=== PATIENT | female | born 1975 | race Caucasian/White ===

== ENCOUNTER 2016-05-12 11:22 | Emergency (ER) | payer OTHER ==
[~2016-05-12] VITALS: Ht 162.6 cm; Wt 78.6 kg
[2016-05-12] MEDS ORDERED: PROZAC40 MG PO (11:36)
[2016-05-12] MEDS ORDERED: METHADONE10 MG PO (11:36)
[2016-05-12 12:42] LABS: CHLORIDE 106 mEq/L (99-109); POTASSIUM 3.8 mEq/L (3.7-5.4); SODIUM 137 mEq/L (136-147)
[2016-05-12 12:44] LABS: GLUCOSE 101 mg/dL (70-99)
[2016-05-12 12:45] LABS: ANION GAP 7 MEQ/L (2-14)
[2016-05-12 12:46] LABS: TOTAL BILIRUBIN 0.4 mg/dL (0.0-1.0)
[2016-05-12 12:47] LABS: ALKALINE PHOSPHATASE 75 IU/L (3-129)
[2016-05-12 12:48] LABS: GFR ESTIMATE (CALCULATED) > 59 mL/min/
[2016-05-12 12:49] LABS: UREA NITROGEN (BUN) 7 mg/dL (9-23)
[2016-05-12 12:53] LABS: MCH 20.8 PG (29.0-34.0); MCV 69.4 FL (83-99); MEAN PLAT.VOLUME 9.8 uM^3 (9.5-12.4); PLATELET COUNT 72 K/uL (156-360); RBC DIS.WIDTH-CV 17.5 % (11.8-14.6)
[2016-05-12 12:54] LABS: WHITE BLOOD COUNT 1.7 K/uL (4.1-10.2)
[2016-05-12 14:27] LABS: IRON 27 MCG/DL (35-150)
[2016-05-12 15:23] VITALS: BP 142/88
[2016-05-14] MEDS ORDERED: ASPIRIN325 MG PO (10:09)
[2016-05-14] MEDS ORDERED: FLEXERIL10 MG PO (10:09)
== END 2016-05-12 15:28 | disposition home or self-care (01) ==
LOC: EME 11:22
PROVIDERS: Nurse Practitioner Family
DX: D64.9 Anemia, unspecified (principal); F11.99 Opioid use, unspecified with unspecified opioid-induced disorder; R05 Cough; Z86.19 Personal history of other infectious and parasitic diseases; F17.200 Nicotine dependence, unspecified, uncomplicated
CPT/HCPCS: 80053; 82140; 83540; 85027; 86850; 86900; 86901; 86920; 86999; 99281; 99285

== ENCOUNTER → 2016-05-14 | Outpatient (CLI) | payer OTHER ==
[~2016-05-14] MED LIST: ASPIRIN325 MG PO; FLEXERIL10 MG PO; METHADONE10 MG PO; PROZAC40 MG PO
== END | disposition home or self-care (01) ==
LOC: CDC 16:03
DX: I45.81 Long QT syndrome (principal)
CPT/HCPCS: 93000

== ENCOUNTER 2016-09-20 14:14 | Emergency (ER) | payer OTHER ==
[~2016-09-20] VITALS: Ht 162.6 cm; Wt 76.4 kg
[2016-09-20 16:13] LABS: CHLORIDE 106 mEq/L (99-109); POTASSIUM 3.1 mEq/L (3.7-5.4); SODIUM 137 mEq/L (136-147)
[2016-09-20 16:16] LABS: GLUCOSE 94 mg/dL (70-99); HEMATOCRIT 10.7 % (36.0-46.0); MCH 16.7 PG (29.0-34.0); MCHC 26.2 G/DL (30.0-36.0); MCV 63.7 FL (83-99); RBC DIS.WIDTH-SD 51.6 % (39-53); RED BLOOD COUNT 1.68 M/uL (3.80-5.20)
[2016-09-20 16:17] LABS: ANION GAP 9 MEQ/L (2-14); TOTAL BILIRUBIN 0.7 mg/dL (0.0-1.0); WHITE BLOOD COUNT 1.3 K/uL (4.1-10.2)
[2016-09-20 16:19] LABS: ALKALINE PHOSPHATASE 55 IU/L (3-129); GFR ESTIMATE (CALCULATED) > 59 mL/min/
[2016-09-20 16:20] LABS: UREA NITROGEN (BUN) 8 mg/dL (9-23)
[2016-09-20 16:23] LABS: LIPASE 17 U/L (1.0-51.0)
[2016-09-20 16:28] LABS: QUANTITATIVE HCG < 4.0 MIU/ML
[2016-09-20 16:47] LABS: TROP-I INTERPRETATION NEGATIVE; TROPONIN-I < 0.01 ng/mL (0.0-0.30)
[2016-09-20 17:07] LABS: MEAN PLAT.VOLUME 8.8 uM^3 (9.5-12.4); PLAT.SUFFICIENCY DECREASED; PLATELET COUNT 83 K/uL (156-360)
[2016-09-20] MEDS ORDERED: METHADONE1 MG/1 ML PO (17:25)
[2016-09-20 21:08] VITALS: BP 84/55
[2016-09-20 21:31] VITALS: BP 113/68
[2016-09-20 22:27] VITALS: BP 103/62
[2016-09-21 00:22] LABS: INTER. NORMALIZED RATIO 1.3; PROTHROMBIN TIME 13.7 (9.2-11.2); PTT 27.8 (25-32)
[2016-09-21 00:32] LABS: HEMATOCRIT 16.2 % (36.0-46.0); MCH 19.8 PG (29.0-34.0); MCHC 28.4 G/DL (30.0-36.0); RBC DIS.WIDTH-CV 22.7 % (11.8-14.6); RBC DIS.WIDTH-SD 57.1 % (39-53)
[2016-09-21 00:41] LABS: MEAN PLAT.VOLUME 10.1 uM^3 (9.5-12.4); PLATELET COUNT 78 K/uL (156-360)
[2016-09-21 00:42] LABS: MCV 69.8 FL (83-99); RED BLOOD COUNT 2.32 M/uL (3.80-5.20); WHITE BLOOD COUNT 1.3 K/uL (4.1-10.2)
[2016-09-21 01:00] VITALS: BP 103/75
== END 2016-09-21 01:02 | disposition short-term general hospital (02) ==
LOC: EME 14:14
PROVIDERS: Physician Assistant
PROC: 30233N1 Transfusion of Nonautologous Red Blood Cells into Peripheral Vein, Percutaneous Approach (ICD-10-PCS; principal; 2016-09-20)
DX: D62 Acute posthemorrhagic anemia (principal); K92.2 Gastrointestinal hemorrhage, unspecified; K74.60 Unspecified cirrhosis of liver; B19.20 Unspecified viral hepatitis C without hepatic coma; R06.02 Shortness of breath; Z79.82 Long term (current) use of aspirin; Z79.891 Long term (current) use of opiate analgesic; F17.200 Nicotine dependence, unspecified, uncomplicated; Z88.0 Allergy status to penicillin
CPT/HCPCS: 80053; 81003; 83690; 84484; 84702; 85014; 85018; 85025; 85027; 85610; 85730; 86870; 86900; 86901; 86905; 86920; 93005; 99281; 99285; C9113; J2354; J7050; P9016

== ENCOUNTER 2016-11-30 21:05 | Inpatient (IN) | payer OTHER ==
[~2016-11-30] VITALS: Ht 162.6 cm; Wt 73.3 kg
[~2016-11-30 21:05] MED LIST changes: +METHADONE1 MG/1 ML PO
[2016-11-30 22:12] LABS: CHLORIDE 109 mEq/L (99-109); POTASSIUM 3.3 mEq/L (3.7-5.4); SODIUM 139 mEq/L (136-147)
[2016-11-30 22:14] LABS: GLUCOSE 105 mg/dL (70-99); INTER. NORMALIZED RATIO 1.1; PROTHROMBIN TIME 12.4 SEC (10.2-12.9)
[2016-11-30 22:15] LABS: ANION GAP 8 MEQ/L (2-14)
[2016-11-30 22:16] LABS: TOTAL BILIRUBIN 0.3 mg/dL (0.0-1.0)
[2016-11-30 22:17] LABS: ALKALINE PHOSPHATASE 50 IU/L (3-129)
[2016-11-30 22:18] LABS: GFR ESTIMATE (CALCULATED) > 59 mL/min/
[2016-11-30 22:19] LABS: UREA NITROGEN (BUN) 22 mg/dL (9-23)
[2016-11-30 22:28] LABS: EOSINOPHIL (%) 2.2 % (0-5); EOSINOPHIL COUNT 0.1 K/uL (0-0.3); HEMATOCRIT 16.7 % (36.0-46.0); IMMATURE GRANULOCYTE (%) 0.4 % (0.0-0.7); INSTRUMENT ABS NEUTROPHIL CT 1.3 K/uL; LYMPHOCYTE COUNT 1.1 K/uL (1.0-2.8); MCH 25.1 PG (29.0-34.0); MCHC 31.7 G/DL (30.0-36.0); MCV 79.1 FL (83-99); MEAN PLAT.VOLUME 9.7 uM^3 (9.5-12.4); MONOCYTE (%) 12.3 % (3-12); MONOCYTE COUNT 0.3 K/uL (0-0.8); NEUTROPHIL COUNT 1.3 K/uL (1.8-6.4); PLATELET COUNT 60 K/uL (156-360); RBC DIS.WIDTH-CV 16.8 % (11.8-14.6); RBC DIS.WIDTH-SD 46.8 % (39-53); RED BLOOD COUNT 2.11 M/uL (3.80-5.20); WHITE BLOOD COUNT 2.8 K/uL (4.1-10.2)
[2016-11-30] MEDS ORDERED: TYLENOL EXTRA500 MG PO (23:37)
[2016-12-01] VITALS (25 sets, daily range): BP systolic 96–125; BP diastolic 56–75
[2016-12-01 06:50] LABS: ALKALINE PHOSPHATASE 41 IU/L (3-129); ANION GAP 6 MEQ/L (2-14); CHLORIDE 110 MEQ/L (99-109); GFR ESTIMATE (CALCULATED) > 59 mL/min/; POTASSIUM 3.3 MEQ/L (3.7-5.4); SAMPLE HEMOLYSIS CHECK 0; SAMPLE ICTERIC CHECK 0; SAMPLE LIPEMIA CHECK 0; SODIUM 138 MEQ/L (136-147); TOTAL BILIRUBIN 0.4 MG/DL (0.0-1.0); UREA NITROGEN (BUN) 18 mg/dL (9-23)
[2016-12-01 06:53] LABS: GLUCOSE 170 mg/dL (70-99)
[2016-12-01 06:57] LABS: TROP-I INTERPRETATION NEGATIVE; TROPONIN-I < 0.01 ng/mL (0.0-0.30)
[2016-12-01 13:27] LABS: TROP-I INTERPRETATION NEGATIVE; TROPONIN-I < 0.01 ng/mL (0.0-0.30)
[2016-12-01 15:14] LABS: HEMATOCRIT 24.4 % (36.0-46.0); IMM.PLATELET FRACTION 1.7 (1-7); MCH 28.6 PG (29.0-34.0); PLATELET COUNT 46 K/uL (156-360); RBC DIS.WIDTH-CV 16.2 % (11.8-14.6); RBC DIS.WIDTH-SD 48.9 % (39-53)
[2016-12-01 15:42] LABS: MCV 84.1 FL (83-99); PLAT.SUFFICIENCY VERY DECREASED; WHITE BLOOD COUNT 1.6 K/uL (4.1-10.2)
[2016-12-02 01:21] LABS: HEMATOCRIT 25.4 % (36.0-46.0)
[2016-12-02 04:40] VITALS: BP 108/62
[2016-12-02 04:57] LABS: INTER. NORMALIZED RATIO 1.1; PROTHROMBIN TIME 12.2 SEC (10.2-12.9)
[2016-12-02 05:06] LABS: CHLORIDE 108 mEq/L (99-109); POTASSIUM 3.5 mEq/L (3.7-5.4); SODIUM 142 mEq/L (136-147)
[2016-12-02 05:09] LABS: ANION GAP 9 MEQ/L (2-14); GLUCOSE 118 mg/dL (70-99)
[2016-12-02 05:12] LABS: ALKALINE PHOSPHATASE 51 IU/L (3-129); GFR ESTIMATE (CALCULATED) > 59 mL/min/
[2016-12-02 05:13] LABS: UREA NITROGEN (BUN) 13 mg/dL (9-23)
[2016-12-02 05:15] LABS: TOTAL BILIRUBIN 0.9 mg/dL (0.0-1.0)
[2016-12-02 05:30] LABS: HEMATOCRIT 24.6 % (36.0-46.0); MCH 27.6 PG (29.0-34.0); MCHC 33.3 G/DL (30.0-36.0); MCV 82.8 FL (83-99); MEAN PLAT.VOLUME 10.2 uM^3 (9.5-12.4); PLATELET COUNT 53 K/uL (156-360); RBC DIS.WIDTH-CV 15.7 % (11.8-14.6); RBC DIS.WIDTH-SD 46.1 % (39-53); RED BLOOD COUNT 2.97 M/uL (3.80-5.20)
[2016-12-02 05:31] LABS: WHITE BLOOD COUNT 1.6 K/uL (4.1-10.2)
[2016-12-02 07:40] VITALS: BP 90/55
[2016-12-02 10:29] LABS: AHBS INDEX 52.25; HBSG INDEX 0.16
[2016-12-02 10:32] LABS: HEPATITIS B SURFACE ANTIBODY REACTIVE
[2016-12-02 11:45] VITALS: BP 124/62
[2016-12-02 15:37] LABS: HEMATOCRIT 25.2 % (36.0-46.0)
[2016-12-02 16:50] VITALS: BP 110/67
[2016-12-02 19:00] VITALS: BP 113/67
[2016-12-02 23:46] VITALS: BP 102/58
[2016-12-03 00:38] LABS: HEMATOCRIT 25.6 % (36.0-46.0); MCV 83.7 FL (83-99)
[2016-12-03 04:03] VITALS: BP 100/57
[2016-12-03 07:46] LABS: HEMATOCRIT 25.3 % (36.0-46.0); MCH 27.7 PG (29.0-34.0); MCHC 32.4 G/DL (30.0-36.0); MCV 85.5 FL (83-99); MEAN PLAT.VOLUME 10.1 uM^3 (9.5-12.4); PLATELET COUNT 52 K/uL (156-360); RBC DIS.WIDTH-CV 16.3 % (11.8-14.6); RBC DIS.WIDTH-SD 49.8 % (39-53); RED BLOOD COUNT 2.96 M/uL (3.80-5.20); WHITE BLOOD COUNT 1.2 K/uL (4.1-10.2)
[2016-12-03 07:51] VITALS: BP 116/69
[2016-12-03 08:11] LABS: ANION GAP 5 MEQ/L (2-14); CHLORIDE 106 MEQ/L (99-109); GFR ESTIMATE (CALCULATED) > 59 mL/min/; GLUCOSE 114 mg/dL (70-99); POTASSIUM 3.5 MEQ/L (3.7-5.4); SAMPLE HEMOLYSIS CHECK 0; SAMPLE ICTERIC CHECK 0; SAMPLE LIPEMIA CHECK 0; SODIUM 140 MEQ/L (136-147); UREA NITROGEN (BUN) 12 mg/dL (9-23)
[2016-12-03 12:15] VITALS: BP 102/58
[2016-12-03 15:19] LABS: HEMATOCRIT 25.1 % (36.0-46.0); MCV 85.4 FL (83-99)
[2016-12-03 16:36] VITALS: BP 117/64
[2016-12-03 19:21] VITALS: BP 114/71
[2016-12-03 22:57] VITALS: BP 110/61
[2016-12-04 01:11] LABS: HEMATOCRIT 25.2 % (36.0-46.0); MCV 85.4 FL (83-99)
[2016-12-04 05:26] VITALS: BP 119/67
[2016-12-04 06:50] LABS: HEMATOCRIT 25.5 % (36.0-46.0); IMM.PLATELET FRACTION 3.1 (1-7); MCH 27.3 PG (29.0-34.0); MCHC 31.8 G/DL (30.0-36.0); MCV 85.9 FL (83-99); MEAN PLAT.VOLUME 9.2 uM^3 (9.5-12.4); PLATELET COUNT 43 K/uL (156-360); RBC DIS.WIDTH-CV 16.5 % (11.8-14.6); RBC DIS.WIDTH-SD 49.7 % (39-53); RED BLOOD COUNT 2.97 M/uL (3.80-5.20)
[2016-12-04 07:02] LABS: WHITE BLOOD COUNT 1.1 K/uL (4.1-10.2)
[2016-12-04 07:04] LABS: PLAT.SUFFICIENCY DECREASED
[2016-12-04 07:05] VITALS: BP 117/66
[2016-12-04 11:05] LABS: INTER. NORMALIZED RATIO 1.2; PROTHROMBIN TIME 13.1 SEC (10.2-12.9)
[2016-12-04 11:13] LABS: MCH 27.7 PG (29.0-34.0); MCHC 31.9 G/DL (30.0-36.0); MCV 86.7 FL (83-99); RBC DIS.WIDTH-CV 16.7 % (11.8-14.6); RBC DIS.WIDTH-SD 51.1 % (39-53)
[2016-12-04 11:15] VITALS: BP 107/64
[2016-12-04 11:38] LABS: WHITE BLOOD COUNT 1.2 K/uL (4.1-10.2)
[2016-12-04 11:40] LABS: ANION GAP 8 MEQ/L (2-14); CHLORIDE 108 MEQ/L (99-109); GFR ESTIMATE (CALCULATED) > 59 mL/min/; GLUCOSE 108 mg/dL (70-99); POTASSIUM 3.8 MEQ/L (3.7-5.4); SAMPLE HEMOLYSIS CHECK 0; SAMPLE ICTERIC CHECK 0; SAMPLE LIPEMIA CHECK 0; SODIUM 141 MEQ/L (136-147); UREA NITROGEN (BUN) 13 mg/dL (9-23)
[2016-12-04 12:45] LABS: IMM.PLATELET FRACTION 3.5 (1-7); MEAN PLAT.VOLUME 10.8 uM^3 (9.5-12.4); PLAT.SUFFICIENCY DECREASED; PLATELET COUNT 55 K/uL (156-360)
[2016-12-04 15:49] VITALS: BP 114/68
[2016-12-04 15:51] LABS: HEMATOCRIT 25.2 % (36.0-46.0)
[2016-12-04 19:32] VITALS: BP 113/70
[2016-12-05] VITALS (7 sets, daily range): BP systolic 105–121; BP diastolic 60–74
[2016-12-05 00:21] LABS: HEMATOCRIT 25.4 % (36.0-46.0); MCV 85.8 FL (83-99)
[2016-12-05 06:32] LABS: INTER. NORMALIZED RATIO 1.2; PROTHROMBIN TIME 12.8 SEC (10.2-12.9)
[2016-12-05 06:35] LABS: PTT 27.2 SEC (25-37)
[2016-12-05 08:12] LABS: FERRITIN 11 NG/ML (10-291)
[2016-12-05 09:02] LABS: ANION GAP 6 MEQ/L (2-14); CHLORIDE 106 MEQ/L (99-109); GFR ESTIMATE (CALCULATED) > 59 mL/min/; GLUCOSE 88 mg/dL (70-99); SAMPLE HEMOLYSIS CHECK 0; SAMPLE ICTERIC CHECK 0; SAMPLE LIPEMIA CHECK 0; SODIUM 140 MEQ/L (136-147); UREA NITROGEN (BUN) 11 mg/dL (9-23)
[2016-12-05 09:35] LABS: HEMATOCRIT 25.1 % (36.0-46.0); IMM.PLATELET FRACTION 3.3 (1-7); MCH 28.5 PG (29.0-34.0); MCHC 32.7 G/DL (30.0-36.0); MCV 87.2 FL (83-99); MEAN PLAT.VOLUME 10.7 uM^3 (9.5-12.4); PLATELET COUNT 53 K/uL (156-360); RBC DIS.WIDTH-CV 16.7 % (11.8-14.6); RBC DIS.WIDTH-SD 52.3 % (39-53); RED BLOOD COUNT 2.88 M/uL (3.80-5.20)
[2016-12-05 16:20] LABS: HEMATOCRIT 25.4 % (36.0-46.0); MCV 87.3 FL (83-99)
[2016-12-06 00:57] LABS: HEMATOCRIT 25.7 % (36.0-46.0)
[2016-12-06 03:42] VITALS: BP 91/49
[2016-12-06 07:45] VITALS: BP 127/75
[2016-12-06 09:34] LABS: HEMATOCRIT 29.1 % (36.0-46.0); MCH 28.5 PG (29.0-34.0); MCHC 32.6 G/DL (30.0-36.0); MCV 87.4 FL (83-99); RBC DIS.WIDTH-CV 16.5 % (11.8-14.6); RBC DIS.WIDTH-SD 52.2 % (39-53); RED BLOOD COUNT 3.33 M/uL (3.80-5.20); WHITE BLOOD COUNT 3.2 K/uL (4.1-10.2)
[2016-12-06 10:08] LABS: IMM.PLATELET FRACTION 2.7 (1-7); MEAN PLAT.VOLUME 9.9 uM^3 (9.5-12.4); PLAT.SUFFICIENCY DECREASED; PLATELET COUNT 43 K/uL (156-360)
[2016-12-06 11:58] VITALS: BP 125/78
[2016-12-06] MEDS ORDERED: NICOTINE PATCH1 EAC2 TD (12:23)
[2016-12-06] MEDS ORDERED: NICORELIEF2 MG BC (12:23)
[2016-12-06] MEDS ORDERED: PANTOPRAZOLE SO40 MG PO (12:24)
== END 2016-12-06 13:57 | disposition home or self-care (01) | DRG 441 ==
LOC: EME 21:05 → 4EAST 12-01 00:24 → EDOF 12-01 00:24 → ENRESERV 12-01 00:26 → 4EAST 12-01 01:20 → ENRESERV 12-03 12:04 → CANRESERV 12-03 12:04 → ENPENDDIS 12-06 → 4EAST 12-06 13:57
PROVIDERS: Emergency Medicine; Hospitalist; Internal Medicine Gastroenterology; Internal Medicine Hematology & Oncology; Physician Assistant
PROC: 0DJ08ZZ Inspection of Upper Intestinal Tract, Via Natural or Artificial Opening Endoscopic (ICD-10-PCS; principal; 2016-12-01)
PROC: 30233R1 Transfusion of Nonautologous Platelets into Peripheral Vein, Percutaneous Approach (ICD-10-PCS; 2016-12-01)
PROC: 30233N1 Transfusion of Nonautologous Red Blood Cells into Peripheral Vein, Percutaneous Approach (ICD-10-PCS; 2016-12-01)
DX: K76.6 Portal hypertension (principal); K31.89 Other diseases of stomach and duodenum; B19.20 Unspecified viral hepatitis C without hepatic coma; K74.60 Unspecified cirrhosis of liver; K72.90 Hepatic failure, unspecified without coma; D61.818 Other pancytopenia; I85.00 Esophageal varices without bleeding; K25.4 Chronic or unspecified gastric ulcer with hemorrhage; E87.6 Hypokalemia; D62 Acute posthemorrhagic anemia; F11.20 Opioid dependence, uncomplicated; D73.1 Hypersplenism; K59.00 Constipation, unspecified; F14.10 Cocaine abuse, uncomplicated; F32.9 Major depressive disorder, single episode, unspecified; F41.9 Anxiety disorder, unspecified; Z62.810 Personal history of physical and sexual abuse in childhood; F17.210 Nicotine dependence, cigarettes, uncomplicated; Z79.82 Long term (current) use of aspirin
CPT/HCPCS: 74177; 80048; 80048 91; 80053; 80069; 82105 90; 82140; 82330; 82607; 82728; 82746; 84484; 85014; 85018; 85025; 85027; 85610; 85730; 86706; 86870; 86900; 86901; 86905; 86920; 87340; 87522 90; 99281; 99284; C9113; J0696; J1447; J1940; J2250; J2354; J2405; J3010; J3480; J7030; J7042; J7050; P9016; P9035

== ENCOUNTER 2017-01-18 18:08 | Inpatient (IN) | payer OTHER ==
[~2017-01-18] VITALS: Ht 162.6 cm; Wt 80.2 kg
[~2017-01-18 18:08] MED LIST changes: +NICORELIEF2 MG BC; +NICOTINE PATCH1 EAC2 TD; +PANTOPRAZOLE SO40 MG PO; +TYLENOL EXTRA500 MG PO
[2017-01-18 20:03] LABS: ADD MIUA? YES; BILIRUBIN NEGATIVE; BLOOD NEGATIVE; COLOR YELLOW ((YELLOW)); GLUCOSE (STRIP) NEGATIVE; KETONES NEGATIVE; LEUKOCYTES TRACE; NITRITE NEGATIVE; PROTEIN (STRIP) NEGATIVE; SPECIFIC GRAVITY 1.009 (1.000-1.030); UROBILINOGEN 0.2 MG/DL (0.2-1.0)
[2017-01-18 20:08] LABS: HEMATOCRIT 13.6 % (36.0-46.0); MCH 21.9 PG (29.0-34.0); MCHC 28.7 G/DL (30.0-36.0); MCV 76.4 FL (83-99); MEAN PLAT.VOLUME 10.2 uM^3 (9.5-12.4); PLATELET COUNT 74 K/uL (156-360); RBC DIS.WIDTH-CV 18.9 % (11.8-14.6); RBC DIS.WIDTH-SD 52.5 % (39-53); RED BLOOD COUNT 1.78 M/uL (3.80-5.20); WHITE BLOOD COUNT 1.3 K/uL (4.1-10.2)
[2017-01-18 20:15] LABS: CHLORIDE 110 mEq/L (99-109); POTASSIUM 3.5 mEq/L (3.7-5.4); SODIUM 139 mEq/L (136-147)
[2017-01-18 20:17] LABS: GLUCOSE 98 mg/dL (70-99)
[2017-01-18 20:18] LABS: ANION GAP 6 MEQ/L (2-14)
[2017-01-18 20:20] LABS: GFR ESTIMATE (CALCULATED) > 59 mL/min/
[2017-01-18 20:21] LABS: UREA NITROGEN (BUN) 5 mg/dL (9-23)
[2017-01-18 20:22] LABS: BACTERIA RARE /HPF; EPITHELIAL CELLS RARE /HPF; HYALINE CASTS 0-5 /LPF; MUCUS NONE SEEN /LPF; RED BLOOD CELLS 0-5 /HPF (0-5); UNCLASSIFIED CRYSTALS 1+ /HPF; WHITE BLOOD CELLS 0-5 /HPF (0-5)
[2017-01-18 22:51] LABS: EOSINOPHIL (%) 3.8 % (0-5); HEMATOCRIT 12.4 % (36.0-46.0); IMMATURE GRANULOCYTE (%) 0.9 % (0.0-0.7); INSTRUMENT ABS NEUTROPHIL CT 0.5 K/uL; LYMPHOCYTE COUNT 0.4 K/uL (1.0-2.8); MCH 22.2 PG (29.0-34.0); MCV 76.5 FL (83-99); MONOCYTE (%) 14.2 % (3-12); MONOCYTE COUNT 0.2 K/uL (0-0.8); NEUTROPHIL (%) 47.1 % (45-76); NEUTROPHIL COUNT 0.5 K/uL (1.8-6.4); RBC DIS.WIDTH-CV 18.6 % (11.8-14.6); RBC DIS.WIDTH-SD 51.8 % (39-53); RED BLOOD COUNT 1.62 M/uL (3.80-5.20)
[2017-01-18 22:53] LABS: WHITE BLOOD COUNT 1.1 K/uL (4.1-10.2)
[2017-01-18 23:54] LABS: MEAN PLAT.VOLUME 9.6 uM^3 (9.5-12.4); PLAT.SUFFICIENCY DECREASED; PLATELET COUNT 60 K/uL (156-360)
[2017-01-19] VITALS (31 sets, daily range): BP systolic 99–147; BP diastolic 61–96
[2017-01-19 05:22] LABS: INTER. NORMALIZED RATIO 1.2; PROTHROMBIN TIME 13.2 SEC (10.2-12.9)
[2017-01-19 05:24] LABS: PTT 28.6 SEC (25-37)
[2017-01-19 06:48] LABS: METH RESISTANT S AUREUS PCR NEGATIVE (NEGATIVE); PROBE CHECK PASS; SPECIMEN PROCESSING CONTROL PASS
[2017-01-19 08:26] LABS: MCH 24.4 PG (29.0-34.0); MCHC 30.6 G/DL (30.0-36.0); MEAN PLAT.VOLUME 9.6 uM^3 (9.5-12.4); PLATELET COUNT 51 K/uL (156-360); RBC DIS.WIDTH-CV 18.6 % (11.8-14.6); RBC DIS.WIDTH-SD 54.2 % (39-53)
[2017-01-19 08:31] LABS: RED BLOOD COUNT 2.25 M/uL (3.80-5.20); WHITE BLOOD COUNT 0.8 K/uL (4.1-10.2)
[2017-01-19 09:16] LABS: ABS NEUTROPHIL COUNT 0.4; ANISOCYTOSIS 1+; BASOPHILS 2.1 %; EOSINOPHIL ABS CT 0; EOSINOPHILS 1.6 % (0-5.0); HYPOCHROMASIA 1+; INSTRUMENT ABS NEUTROPHIL CT 0.4 K/uL; LYMPHOCYTES 39.5 % (15.0-45.0); MICROCYTOSIS 1+; NUCLEATED RBC'S 2.6; OVALOCYTES 1+; PLAT.SUFFICIENCY DECREASED; SEG.NEUTROPHILS 53.7 % (46.0-76.0); SMUDGE CELLS 5.8; TEAR DROP CELLS 1+
[2017-01-19 09:23] LABS: ALKALINE PHOSPHATASE 63 IU/L (3-129); ANION GAP 4 MEQ/L (2-14); CHLORIDE 111 MEQ/L (99-109); GFR ESTIMATE (CALCULATED) > 59 mL/min/; GLUCOSE 122 mg/dL (70-99); POTASSIUM 3.9 MEQ/L (3.7-5.4); SAMPLE HEMOLYSIS CHECK 0; SAMPLE ICTERIC CHECK 0; SAMPLE LIPEMIA CHECK 0; SODIUM 139 MEQ/L (136-147); TOTAL BILIRUBIN 0.9 MG/DL (0.0-1.0); UREA NITROGEN (BUN) 5 mg/dL (9-23)
[2017-01-19] MEDS ORDERED: NEURONTIN400 MG PO (11:27)
[2017-01-19] MEDS ORDERED: FEOSOL325 MG PO (11:28)
[2017-01-19] MEDS ORDERED: ENULOSE10 GM/15 M PO (11:29)
[2017-01-19] MEDS ORDERED: INDERAL10 MG PO (11:29)
[2017-01-19 14:53] LABS: HEMATOCRIT 23.7 % (36.0-46.0); MCH 24.7 PG (29.0-34.0); MCHC 31.2 G/DL (30.0-36.0); MCV 79.3 FL (83-99); PLATELET COUNT 52 K/uL (156-360); RBC DIS.WIDTH-SD 48.6 % (39-53)
[2017-01-19 14:55] LABS: RED BLOOD COUNT 2.99 M/uL (3.80-5.20)
[2017-01-19 15:39] LABS: ABS NEUTROPHIL COUNT 0.5; ATYPICAL LYMPHOCYTE 1.8 %; BASOPHILS 1.8 %; EOSINOPHIL ABS CT 0; EOSINOPHILS 0.9 % (0-5.0); HYPOCHROMASIA 2+; INSTRUMENT ABS NEUTROPHIL CT 0.5 K/uL; LYMPHOCYTES 40.7 % (15.0-45.0); NUCLEATED RBC'S 2.7; OVALOCYTES 1+; PLAT.SUFFICIENCY VERY DECREASED; SEG.NEUTROPHILS 49.5 % (46.0-76.0); TARGET CELLS 1+
[2017-01-20] VITALS (9 sets, daily range): BP systolic 110–136; BP diastolic 71–95
[2017-01-20 05:03] LABS: CHLORIDE 112 mEq/L (99-109); HEMATOCRIT 25.2 % (36.0-46.0); MCH 24.7 PG (29.0-34.0); MCV 79.7 FL (83-99); POTASSIUM 4.1 mEq/L (3.7-5.4); RBC DIS.WIDTH-CV 17.3 % (11.8-14.6); RBC DIS.WIDTH-SD 50.8 % (39-53); RED BLOOD COUNT 3.16 M/uL (3.80-5.20); SODIUM 139 mEq/L (136-147); WHITE BLOOD COUNT 1.7 K/uL (4.1-10.2)
[2017-01-20 05:04] LABS: GLUCOSE 98 mg/dL (70-99)
[2017-01-20 05:06] LABS: ANION GAP 6 MEQ/L (2-14)
[2017-01-20 05:08] LABS: GFR ESTIMATE (CALCULATED) > 59 mL/min/
[2017-01-20 05:09] LABS: UREA NITROGEN (BUN) 6 mg/dL (9-23)
[2017-01-20 05:43] LABS: IMM.PLATELET FRACTION 1.5 (1-7); MEAN PLAT.VOLUME 9.3 uM^3 (9.5-12.4); PLAT.SUFFICIENCY DECREASED; PLATELET COUNT 48 K/uL (156-360)
[2017-01-20] MEDS ORDERED: FUROSEMIDE20 MG PO (15:30)
[2017-01-20] MEDS ORDERED: ALDACTONE100 MG PO (15:31)
[2017-01-21] VITALS: BP 123/80
[2017-01-21 02:00] VITALS: BP 126/73
[2017-01-21 04:00] VITALS: BP 119/71
[2017-01-21 04:53] LABS: HEMATOCRIT 24.1 % (36.0-46.0); MCH 24.8 PG (29.0-34.0); MCHC 30.7 G/DL (30.0-36.0); MCV 80.9 FL (83-99); RBC DIS.WIDTH-CV 18.4 % (11.8-14.6); RBC DIS.WIDTH-SD 54.8 % (39-53); RED BLOOD COUNT 2.98 M/uL (3.80-5.20)
[2017-01-21 04:55] LABS: WHITE BLOOD COUNT 1.7 K/uL (4.1-10.2)
[2017-01-21 05:10] LABS: CHLORIDE 111 mEq/L (99-109); POTASSIUM 4.5 mEq/L (3.7-5.4); SODIUM 141 mEq/L (136-147)
[2017-01-21 05:11] LABS: GLUCOSE 113 mg/dL (70-99)
[2017-01-21 05:13] LABS: ANION GAP 4 MEQ/L (2-14)
[2017-01-21 05:15] LABS: GFR ESTIMATE (CALCULATED) > 59 mL/min/
[2017-01-21 05:16] LABS: UREA NITROGEN (BUN) 6 mg/dL (9-23)
[2017-01-21 05:53] LABS: IMM.PLATELET FRACTION 3.5 (1-7); MEAN PLAT.VOLUME 9.8 uM^3 (9.5-12.4); PLAT.SUFFICIENCY VERY DECREASED; PLATELET COUNT 48 K/uL (156-360)
[2017-01-21 08:00] VITALS: BP 119/76
[2017-01-21] MEDS ORDERED: FLEXERIL10 MG PO (08:10)
[2017-01-21] MEDS ORDERED: CIPRO500 MG PO (08:10)
[2017-01-21] MEDS ORDERED: METRONIDAZOLE500 MG PO (08:10)
[2017-01-21] MEDS ORDERED: FEOSOL325 MG PO (08:11)
[2017-01-21] MEDS ORDERED: NICORELIEF2 MG BC (08:11)
[2017-01-21] MEDS ORDERED: NICOTINE PATCH1 EAC2 TD (08:11)
[2017-01-21] MEDS ORDERED: NEURONTIN400 MG PO (08:11)
[2017-01-21] MEDS ORDERED: INDERAL10 MG PO (08:11)
[2017-01-21] MEDS ORDERED: ENULOSE10 GM/15 M PO (08:12)
[2017-01-21] MEDS ORDERED: PANTOPRAZOLE SO40 MG PO (08:12)
[2017-01-21] MEDS ORDERED: PROZAC40 MG PO (08:12)
[2017-01-21 12:00] VITALS: BP 119/85
== END 2017-01-21 14:00 | disposition home or self-care (01) | DRG 441 ==
LOC: EME 18:08 → EDOF 01-19 04:31 → 4WEST 01-19 04:31 → ENRESERV 01-19 04:32 → 4WEST 01-19 05:12
PROVIDERS: Emergency Medicine; Hospitalist; Internal Medicine Critical Care Medicine; Internal Medicine Gastroenterology
PROC: 0DJ08ZZ Inspection of Upper Intestinal Tract, Via Natural or Artificial Opening Endoscopic (ICD-10-PCS; principal; 2017-01-19)
PROC: 30233N1 Transfusion of Nonautologous Red Blood Cells into Peripheral Vein, Percutaneous Approach (ICD-10-PCS; 2017-01-19)
DX: K76.6 Portal hypertension (principal); K31.89 Other diseases of stomach and duodenum; I85.11 Secondary esophageal varices with bleeding; B18.2 Chronic viral hepatitis C; K74.60 Unspecified cirrhosis of liver; I86.4 Gastric varices; R18.8 Other ascites; D61.818 Other pancytopenia; D62 Acute posthemorrhagic anemia; K52.9 Noninfective gastroenteritis and colitis, unspecified; R55 Syncope and collapse; F17.200 Nicotine dependence, unspecified, uncomplicated; E66.9 Obesity, unspecified; Z68.28 Body mass index [BMI] 28.0-28.9, adult
CPT/HCPCS: 74176; 80048; 80053; 81003; 83735; 84100; 85025; 85025 91; 85027; 85610; 85730; 86850; 86870; 86900; 86901; 86905; 86920; 87641; 90686; 93005; 99281; 99285; C9113; J0696; J0744; J2250; J2270; J2354; J2765; J3010; J7050; P9016

== ENCOUNTER 2017-03-20 17:26 | Emergency (ER) | payer OTHER ==
[~2017-03-20] VITALS: Ht 162.6 cm; Wt 160.0 kg
[2017-03-20] VITALS (10 sets, daily range): BP systolic 95–111; BP diastolic 59–73
[~2017-03-20 17:26] MED LIST changes: +ALDACTONE100 MG PO; +CIPRO500 MG PO; +ENULOSE10 GM/15 M PO; +FEOSOL325 MG PO; +FUROSEMIDE20 MG PO; +INDERAL10 MG PO; +METRONIDAZOLE500 MG PO; +NEURONTIN400 MG PO
[2017-03-20 18:14] LABS: INTER. NORMALIZED RATIO 1.5; PROTHROMBIN TIME 16.5 SEC (10.2-12.9)
[2017-03-20 18:17] LABS: HEMATOCRIT 7.1 % (36.0-46.0); MCH 16.8 PG (29.0-34.0); MCHC 25.4 G/DL (30.0-36.0); MCV 66.4 FL (83-99); NRBC (%) 0.5 /100 WBC (0-0); RBC DIS.WIDTH-CV 20.6 % (11.8-14.6); RED BLOOD COUNT 1.07 M/uL (3.80-5.20); WHITE BLOOD COUNT 3.8 K/uL (4.1-10.2)
[2017-03-20 18:19] LABS: CHLORIDE 107 mEq/L (99-109); POTASSIUM 3.8 mEq/L (3.7-5.4); SODIUM 132 mEq/L (136-147)
[2017-03-20 18:21] LABS: GLUCOSE 101 mg/dL (70-99)
[2017-03-20 18:22] LABS: ANION GAP 7 MEQ/L (2-14)
[2017-03-20 18:23] LABS: TOTAL BILIRUBIN 0.3 mg/dL (0.0-1.0)
[2017-03-20 18:25] LABS: ALKALINE PHOSPHATASE 51 IU/L (3-129); GFR ESTIMATE (CALCULATED) > 59 mL/min/
[2017-03-20 18:26] LABS: UREA NITROGEN (BUN) 15 mg/dL (9-23)
[2017-03-20 18:52] LABS: EOSINOPHIL (%) 0 % (0-5); IMMATURE GRANULOCYTE (%) 0.8 % (0.0-0.7); INSTRUMENT ABS NEUTROPHIL CT 2.8 K/uL; LYMPHOCYTE COUNT 0.7 K/uL (1.0-2.8); MEAN PLAT.VOLUME 10.5 uM^3 (9.5-12.4); MONOCYTE (%) 7.6 % (3-12); MONOCYTE COUNT 0.3 K/uL (0-0.8); NEUTROPHIL (%) 72.7 % (45-76); NEUTROPHIL COUNT 2.8 K/uL (1.8-6.4); PLATELET COUNT 140 K/uL (156-360)
[2017-03-20 18:57] LABS: PLAT.SUFFICIENCY DECREASED
[2017-03-20] MEDS ORDERED: ENULOSE10 GM/15 M PO (20:12)
[2017-03-20] MEDS ORDERED: FUROSEMIDE20 MG PO (20:13)
[2017-03-20] MEDS ORDERED: PROTONIX40 MG PO (20:13)
== END 2017-03-21 00:20 | disposition short-term general hospital (02) ==
LOC: EME 17:26
PROVIDERS: Emergency Medicine
PROC: 30233N1 Transfusion of Nonautologous Red Blood Cells into Peripheral Vein, Percutaneous Approach (ICD-10-PCS; principal; 2017-03-20)
DX: K92.2 Gastrointestinal hemorrhage, unspecified (principal); K92.0 Hematemesis; D50.0 Iron deficiency anemia secondary to blood loss (chronic); K74.60 Unspecified cirrhosis of liver; B19.20 Unspecified viral hepatitis C without hepatic coma; R51 Headache; F17.200 Nicotine dependence, unspecified, uncomplicated
CPT/HCPCS: 80053; 82140; 85025; 85610; 85730; 86850; 86870; 86880; 86900; 86901; 86905; 86920; 99281; 99285; C9113; J2270; J2405; J7030; P9016

== ENCOUNTER 2017-04-19 08:04 | Inpatient (IN) | payer OTHER ==
[2017-04-19] VITALS (17 sets, daily range): BP systolic 100–117; BP diastolic 62–76
[~2017-04-19] VITALS: Ht 162.6 cm; Wt 65.5 kg
[~2017-04-19 08:04] MED LIST changes: +PROTONIX40 MG PO
[2017-04-19 09:54] LABS: ALBUMIN 2.9 g/dL (3.2-4.8); CHLORIDE 109 mEq/L (99-109); POTASSIUM 2.9 mEq/L (3.7-5.4); SODIUM 135 mEq/L (136-147)
[2017-04-19 09:56] LABS: GLUCOSE 104 mg/dL (70-99)
[2017-04-19 09:57] LABS: TOTAL PROTEIN 6.2 g/dL (6.4-8.3)
[2017-04-19 09:58] LABS: TOTAL BILIRUBIN 0.3 mg/dL (0.0-1.0)
[2017-04-19 10:00] LABS: ALKALINE PHOSPHATASE 50 IU/L (3-129); CREATININE 0.7 mg/dL (0.6-1.3); GFR ESTIMATE (CALCULATED) > 59 mL/min/; HEMATOCRIT 10.3 % (36.0-46.0); MCHC 29.1 G/DL (30.0-36.0); RBC DIS.WIDTH-CV 18.3 % (11.8-14.6)
[2017-04-19 10:01] LABS: UREA NITROGEN (BUN) 11 mg/dL (9-23)
[2017-04-19 10:02] LABS: AST (GOT) 61 IU/L (2-34)
[2017-04-19 10:03] LABS: ALT (GPT) 25 IU/L (3-49)
[2017-04-19 10:04] LABS: LIPASE 15 U/L (1.0-51.0)
[2017-04-19 10:05] LABS: MCH 22.7 PG (29.0-34.0); RED BLOOD COUNT 1.32 M/uL (3.80-5.20); WHITE BLOOD COUNT 0.9 K/uL (4.1-10.2)
[2017-04-19 10:16] LABS: INTER. NORMALIZED RATIO 1.5
[2017-04-19 12:18] LABS: ABS NEUTROPHIL COUNT 0.4; EOSINOPHIL ABS CT 0; HYPOCHROMASIA 3+; POLYCHROMASIA 1+
[2017-04-19 14:47] LABS: PLATELET COUNT 65 K/uL (156-360)
[2017-04-19 16:20] LABS: HEMATOCRIT 17.1 % (36.0-46.0); MCH 24.8 PG (29.0-34.0); MCV 79.9 FL (83-99); NRBC (%) 1.9 /100 WBC (0-0); RBC DIS.WIDTH-CV 17.8 % (11.8-14.6); RBC DIS.WIDTH-SD 51.7 % (39-53)
[2017-04-19 17:11] LABS: HEMOGLOBIN 5.3 G/DL (11.9-15.5); RED BLOOD COUNT 2.14 M/uL (3.80-5.20)
[2017-04-19 18:36] LABS: IMM.PLATELET FRACTION 5.5 (1-7); PLAT.SUFFICIENCY DECREASED; PLATELET COUNT 52 K/uL (156-360)
[2017-04-20] VITALS (24 sets, daily range): BP systolic 98–130; BP diastolic 61–96
[2017-04-20 05:50] LABS: HEMATOCRIT 26.6 % (36.0-46.0); MCV 82.1 FL (83-99)
[2017-04-20 05:55] LABS: HEMOGLOBIN 8.6 G/DL (11.9-15.5)
[2017-04-21] VITALS (9 sets, daily range): BP systolic 99–117; BP diastolic 65–78
[2017-04-21 04:48] LABS: BASOPHIL (%) 0.5 % (0-1); EOSINOPHIL (%) 2.8 % (0-5); EOSINOPHIL COUNT 0.1 K/uL (0-0.3); HEMATOCRIT 29.3 % (36.0-46.0); HEMOGLOBIN 9.3 G/DL (11.9-15.5); IMMATURE GRANULOCYTE (%) 0.5 % (0.0-0.7); LYMPHOCYTE (%) 30.7 % (15-42); LYMPHOCYTE COUNT 0.7 K/uL (1.0-2.8); MCH 26.3 PG (29.0-34.0); MCHC 31.7 G/DL (30.0-36.0); MONOCYTE (%) 17.5 % (3-12); MONOCYTE COUNT 0.4 K/uL (0-0.8); NRBC (%) 0.9 /100 WBC (0-0); PLATELET COUNT 52 K/uL (156-360); RBC DIS.WIDTH-CV 17.3 % (11.8-14.6); RBC DIS.WIDTH-SD 52.3 % (39-53); WHITE BLOOD COUNT 2.1 K/uL (4.1-10.2)
[2017-04-21 04:53] LABS: RED BLOOD COUNT 3.53 M/uL (3.80-5.20)
[2017-04-21 05:14] LABS: ALBUMIN 2.9 g/dL (3.2-4.8); CHLORIDE 110 mEq/L (99-109); SODIUM 135 mEq/L (136-147)
[2017-04-21 05:17] LABS: GLUCOSE 106 mg/dL (70-99); TOTAL PROTEIN 6.1 g/dL (6.4-8.3)
[2017-04-21 05:18] LABS: POTASSIUM 4.4 mEq/L (3.7-5.4)
[2017-04-21 05:20] LABS: ALKALINE PHOSPHATASE 51 IU/L (3-129); CREATININE 0.8 mg/dL (0.6-1.3); GFR ESTIMATE (CALCULATED) > 59 mL/min/; TOTAL BILIRUBIN 0.6 mg/dL (0.0-1.0)
[2017-04-21 05:21] LABS: UREA NITROGEN (BUN) 8 mg/dL (9-23)
[2017-04-21 05:22] LABS: AST (GOT) 36 IU/L (2-34)
[2017-04-21 05:23] LABS: ALT (GPT) 18 IU/L (3-49)
[2017-04-22 00:35] VITALS: BP 102/58
[2017-04-22 04:19] VITALS: BP 102/59
[2017-04-22 07:57] VITALS: BP 95/53
[2017-04-22] MEDS ORDERED: PROTONIX40 MG PO (09:04)
[2017-04-22 12:21] VITALS: BP 103/62
== END 2017-04-22 15:02 | disposition home or self-care (01) | DRG 369 ==
LOC: EME 08:04 → EDOF 18:04 → 4WEST 18:04 → ENRESERV 18:05 → 4WEST 19:37 → ENRESERV 04-21 11:02 → 5SOUTH 04-21 14:20
PROVIDERS: Emergency Medicine; Internal Medicine Critical Care Medicine; Internal Medicine Gastroenterology
PROC: 30233N1 Transfusion of Nonautologous Red Blood Cells into Peripheral Vein, Percutaneous Approach (ICD-10-PCS; principal; 2017-04-19)
PROC: 06L38CZ Occlusion of Esophageal Vein with Extraluminal Device, Via Natural or Artificial Opening Endoscopic (ICD-10-PCS; 2017-04-20)
DX: I85.01 Esophageal varices with bleeding (principal); D62 Acute posthemorrhagic anemia; D61.818 Other pancytopenia; E87.6 Hypokalemia; K76.6 Portal hypertension; R16.1 Splenomegaly, not elsewhere classified; B19.20 Unspecified viral hepatitis C without hepatic coma; K74.69 Other cirrhosis of liver; K31.89 Other diseases of stomach and duodenum; F14.20 Cocaine dependence, uncomplicated; F32.9 Major depressive disorder, single episode, unspecified; F17.210 Nicotine dependence, cigarettes, uncomplicated; Z88.0 Allergy status to penicillin
CPT/HCPCS: 80053; 83690; 85014; 85018; 85025; 85027; 85610; 86850; 86870; 86900; 86901; 86905; 86920; 87641; 93005; 99281; 99285; C1753; C9113; J0696; J1170; J2354; J2405; J3010; J3480; J7050; P9016

== ENCOUNTER 2017-08-23 07:44 | Inpatient (IN) | payer OTHER ==
[~2017-08-23] VITALS: Ht 162.6 cm; Wt 65.0 kg
[2017-08-23] VITALS (18 sets, daily range): BP systolic 94–136; BP diastolic 55–83
[2017-08-23 08:06] LABS: INTER. NORMALIZED RATIO 1.2
[2017-08-23 08:21] LABS: BASOPHIL (%) 0.8 % (0-1); EOSINOPHIL (%) 0.8 % (0-5); HEMATOCRIT 21.2 % (36.0-46.0); LYMPHOCYTE COUNT 0.4 K/uL (1.0-2.8); MCH 18.9 PG (29.0-34.0); MCHC 28.3 G/DL (30.0-36.0); MCV 66.9 FL (83-99); MONOCYTE (%) 13.1 % (3-12); MONOCYTE COUNT 0.2 K/uL (0-0.8); NEUTROPHIL (%) 53.3 % (45-76); NEUTROPHIL COUNT 0.7 K/uL (1.8-6.4); PLATELET COUNT 61 K/uL (156-360); RBC DIS.WIDTH-CV 17.9 % (11.8-14.6); RBC DIS.WIDTH-SD 43.4 % (39-53); RED BLOOD COUNT 3.17 M/uL (3.80-5.20); WHITE BLOOD COUNT 1.2 K/uL (4.1-10.2)
[2017-08-23 08:36] LABS: ALBUMIN 3.6 g/dL (3.2-4.8); CHLORIDE 112 mEq/L (99-109); POTASSIUM 4.1 mEq/L (3.7-5.4); SODIUM 141 mEq/L (136-147)
[2017-08-23 08:38] LABS: GLUCOSE 92 mg/dL (70-99); TOTAL PROTEIN 8.1 g/dL (6.4-8.3)
[2017-08-23 08:40] LABS: TOTAL BILIRUBIN 0.4 mg/dL (0.0-1.0)
[2017-08-23 08:42] LABS: ALKALINE PHOSPHATASE 133 IU/L (3-129); CREATININE 0.8 mg/dL (0.6-1.3); GFR ESTIMATE (CALCULATED) > 59 mL/min/
[2017-08-23 08:43] LABS: TROP-I INTERPRETATION NEGATIVE; TROPONIN-I < 0.01 ng/mL (0.0-0.30); UREA NITROGEN (BUN) 9 mg/dL (9-23)
[2017-08-23 08:44] LABS: AST (GOT) 84 IU/L (2-34)
[2017-08-23 08:45] LABS: ALT (GPT) 53 IU/L (3-49); CREATINE KINASE 52 IU/L (1-294); TOTAL CK 52 IU/L (1-294)
[2017-08-23 08:51] LABS: CK-MB 0.9 ng/mL (0.0-4.9); CKMB RELATIVE INDEX 1.7 (0.0-3.9)
[2017-08-23 10:37] LABS: APPEARANCE CLEAR ((CLEAR)); BILIRUBIN NEGATIVE; BLOOD NEGATIVE; COLOR YELLOW ((YELLOW)); GLUCOSE (STRIP) NEGATIVE; KETONES NEGATIVE; LEUKOCYTES TRACE; NITRITE NEGATIVE; PROTEIN (STRIP) NEGATIVE; SPECIFIC GRAVITY 1.011 (1.000-1.030)
[2017-08-23 10:42] LABS: BACTERIA NONE SEEN /HPF; EPITHELIAL CELLS NONE SEEN /HPF; MUCUS TRACE /LPF; RED BLOOD CELLS 0-5 /HPF (0-5); UCUL ADDED? NO; WHITE BLOOD CELLS 0-5 /HPF (0-5)
[2017-08-23 10:59] LABS: AMPHETAMINE NEGATIVE (500 ng/mL); BARBITURATES NEGATIVE (200 ng/mL); BENZODIAZEPINES NEGATIVE (150 ng/mL); BUPRENORPHINE NEGATIVE (10 ng/mL); COCAINE PRESUMPTIVE POSITIVE (150 ng/mL); METHADONE PRESUMPTIVE POSITIVE (200 ng/mL); METHAMPHETAMINE NEGATIVE (500 ng/mL); OPIATES (MORPHINE) NEGATIVE (100 ng/mL); OXYCODONE NEGATIVE (100 ng/mL); PHENCYCLIDINE NEGATIVE (25 ng/mL); PROPOXYPHENE NEGATIVE (300 ng/mL); THC CANNABINOIDS NEGATIVE (50 ng/mL); TRICYCLIC ANTIDEPRESSANTS NEGATIVE (300 ng/mL)
[2017-08-23] MEDS ORDERED: GABAPENTIN400 MG PO (11:36)
[2017-08-23] MEDS ORDERED: PROZAC20 MG PO (11:36)
[2017-08-23] MEDS ORDERED: TOPIRAMATE25 MG PO (11:37)
[2017-08-23 14:00] LABS: BASE EXCESS -2.8 mEq/L (-3 to +3); BICARBONATE 21.9 mEq/L (22-26); PCO2 37 mm Hg (35-45); PO2 50 mm Hg (80-100); pH 7.38 (7.35-7.45)
[2017-08-23 14:01] LABS: COMMENTS - BLOOD GASES C+; DEVICE RA; SITE RR
[2017-08-23 14:26] LABS: HEMATOCRIT 19.2 % (36.0-46.0); HEMOGLOBIN 5.2 G/DL (11.9-15.5); MCV 67.8 FL (83-99)
[2017-08-23 19:35] LABS: HEMATOCRIT 23.9 % (36.0-46.0); MCV 71.1 FL (83-99)
[2017-08-23 19:36] LABS: HEMOGLOBIN 6.9 G/DL (11.9-15.5)
[2017-08-24] VITALS (28 sets, daily range): BP systolic 82–151; BP diastolic 61–95
[2017-08-24 01:03] LABS: HEMATOCRIT 22.8 % (36.0-46.0); HEMOGLOBIN 6.7 G/DL (11.9-15.5); MCV 70.6 FL (83-99)
[2017-08-24 06:14] LABS: BASOPHIL (%) 0.8 % (0-1); EOSINOPHIL (%) 0.8 % (0-5); IMMATURE GRANULOCYTE (%) 0.8 % (0.0-0.7); LYMPHOCYTE (%) 18.2 % (15-42); LYMPHOCYTE COUNT 0.2 K/uL (1.0-2.8); MCH 20.4 PG (29.0-34.0); MCHC 29.1 G/DL (30.0-36.0); MCV 70.1 FL (83-99); MONOCYTE (%) 9.8 % (3-12); MONOCYTE COUNT 0.1 K/uL (0-0.8); NEUTROPHIL (%) 69.6 % (45-76); NEUTROPHIL COUNT 0.9 K/uL (1.8-6.4); RBC DIS.WIDTH-SD 51.2 % (39-53); RED BLOOD COUNT 3.28 M/uL (3.80-5.20)
[2017-08-24 06:16] LABS: ALBUMIN 3.4 G/DL (3.2-4.8); ALKALINE PHOSPHATASE 107 IU/L (3-129); ALT (GPT) 33 IU/L (3-49); AST (GOT) 56 IU/L (2-34); CHLORIDE 117 MEQ/L (99-109); CREATININE 0.7 MG/DL (0.6-1.3); DIRECT BILIRUBIN 0.2 mg/dL (0.0-0.3); GFR ESTIMATE (CALCULATED) > 59 mL/min/; GLUCOSE 128 mg/dL (70-99); PHOSPHORUS 2.6 mg/dL (2.5-4.9); POTASSIUM 3.8 MEQ/L (3.7-5.4); SODIUM 141 MEQ/L (136-147); TOTAL BILIRUBIN 0.5 MG/DL (0.0-1.0); TOTAL PROTEIN 7.4 G/DL (6.4-8.3); UREA NITROGEN (BUN) 12 mg/dL (9-23)
[2017-08-24 06:18] LABS: CHLORIDE 118 MEQ/L (99-109); CREATININE 0.7 MG/DL (0.6-1.3); GFR ESTIMATE (CALCULATED) > 59 mL/min/; GLUCOSE 123 mg/dL (70-99); POTASSIUM 3.9 MEQ/L (3.7-5.4); SODIUM 144 MEQ/L (136-147); UREA NITROGEN (BUN) 12 mg/dL (9-23)
[2017-08-24 06:25] LABS: HEMOGLOBIN 6.7 G/DL (11.9-15.5); WHITE BLOOD COUNT 1.3 K/uL (4.1-10.2)
[2017-08-24 10:14] LABS: PLATELET COUNT 47 K/uL (156-360)
[2017-08-24 10:25] LABS: IMM.PLATELET FRACTION 1.9 (1-7)
[2017-08-24 15:10] LABS: HEMATOCRIT 26.7 % (36.0-46.0); MCV 71.8 FL (83-99)
[2017-08-24 15:54] LABS: BENZODIAZEPINES, URINE SCREEN Negative (200 ng/mL)
[2017-08-24 18:48] LABS: HEMATOCRIT 26.5 % (36.0-46.0); HEMOGLOBIN 7.9 G/DL (11.9-15.5); MCV 71.2 FL (83-99)
[2017-08-25] VITALS (17 sets, daily range): BP systolic 118–164; BP diastolic 71–101
[2017-08-25 00:47] LABS: HEMATOCRIT 26.9 % (36.0-46.0); HEMOGLOBIN 8.2 G/DL (11.9-15.5); MCV 70.8 FL (83-99)
[2017-08-25 05:36] LABS: INTER. NORMALIZED RATIO 1.3
[2017-08-25 05:44] LABS: BASOPHIL (%) 0 % (0-1); EOSINOPHIL (%) 1.1 % (0-5); HEMATOCRIT 26.1 % (36.0-46.0); HEMOGLOBIN 7.8 G/DL (11.9-15.5); IMMATURE GRANULOCYTE (%) 1.1 % (0.0-0.7); LYMPHOCYTE COUNT 0.4 K/uL (1.0-2.8); MCH 21.3 PG (29.0-34.0); MCHC 29.9 G/DL (30.0-36.0); MCV 71.1 FL (83-99); MONOCYTE (%) 11.4 % (3-12); MONOCYTE COUNT 0.2 K/uL (0-0.8); NEUTROPHIL (%) 65.4 % (45-76); NEUTROPHIL COUNT 1.2 K/uL (1.8-6.4); RBC DIS.WIDTH-CV 20.8 % (11.8-14.6); RBC DIS.WIDTH-SD 52.5 % (39-53); RED BLOOD COUNT 3.67 M/uL (3.80-5.20)
[2017-08-25 05:45] LABS: WHITE BLOOD COUNT 1.8 K/uL (4.1-10.2)
[2017-08-25 06:23] LABS: CHLORIDE 112 MEQ/L (99-109); CREATININE 0.6 MG/DL (0.6-1.3); GFR ESTIMATE (CALCULATED) > 59 mL/min/; GLUCOSE 121 mg/dL (70-99); MAGNESIUM 1.7 mg/dl (1.3-2.7); PHOSPHORUS 2.3 mg/dL (2.5-4.9); POTASSIUM 3.3 MEQ/L (3.7-5.4); SODIUM 138 MEQ/L (136-147); UREA NITROGEN (BUN) 9 mg/dL (9-23)
[2017-08-25 06:37] LABS: ANISOCYTOSIS 2+; IMM.PLATELET FRACTION 1.5 (1-7); MICROCYTOSIS 2+; PLAT.SUFFICIENCY VERY DECREASED; PLATELET COUNT 40 K/uL (156-360)
[2017-08-25 14:50] LABS: HEMATOCRIT 30.2 % (36.0-46.0); MCH 21.4 PG (29.0-34.0); MCHC 29.8 G/DL (30.0-36.0); MCV 71.7 FL (83-99); RBC DIS.WIDTH-SD 53.5 % (39-53); RED BLOOD COUNT 4.21 M/uL (3.80-5.20); WHITE BLOOD COUNT 2.8 K/uL (4.1-10.2)
[2017-08-25 15:25] LABS: IMM.PLATELET FRACTION 2.3 (1-7); PLATELET COUNT 46 K/uL (156-360)
[2017-08-26] VITALS (7 sets, daily range): BP systolic 110–157; BP diastolic 69–88
[2017-08-26 05:48] LABS: HEMATOCRIT 26.5 % (36.0-46.0); HEMOGLOBIN 7.8 G/DL (11.9-15.5); MCH 20.8 PG (29.0-34.0); MCHC 29.4 G/DL (30.0-36.0); MCV 70.7 FL (83-99); RBC DIS.WIDTH-CV 20.7 % (11.8-14.6); RBC DIS.WIDTH-SD 52.8 % (39-53); RED BLOOD COUNT 3.75 M/uL (3.80-5.20)
[2017-08-26 05:51] LABS: WHITE BLOOD COUNT 1.5 K/uL (4.1-10.2)
[2017-08-26 06:07] LABS: BASOPHIL (%) 0.7 % (0-1); IMM.PLATELET FRACTION 1.7 (1-7); IMMATURE GRANULOCYTE (%) 0.7 % (0.0-0.7); LYMPHOCYTE (%) 24.2 % (15-42); LYMPHOCYTE COUNT 0.4 K/uL (1.0-2.8); MONOCYTE (%) 13.4 % (3-12); MONOCYTE COUNT 0.2 K/uL (0-0.8); NEUTROPHIL COUNT 0.9 K/uL (1.8-6.4); PLAT.SUFFICIENCY VERY DECREASED; PLATELET COUNT 40 K/uL (156-360)
[2017-08-26 06:26] LABS: ALBUMIN 3.3 G/DL (3.2-4.8); ALKALINE PHOSPHATASE 92 IU/L (3-129); ALT (GPT) 26 IU/L (3-49); AST (GOT) 38 IU/L (2-34); CHLORIDE 110 MEQ/L (99-109); CREATININE 0.6 MG/DL (0.6-1.3); GFR ESTIMATE (CALCULATED) > 59 mL/min/; POTASSIUM 3.3 MEQ/L (3.7-5.4); SODIUM 139 MEQ/L (136-147); TOTAL BILIRUBIN 0.5 MG/DL (0.0-1.0); TOTAL PROTEIN 7.2 G/DL (6.4-8.3); UREA NITROGEN (BUN) 7 mg/dL (9-23)
[2017-08-26 06:29] LABS: GLUCOSE 86 mg/dL (70-99)
[2017-08-26 16:35] LABS: CHLORIDE 112 MEQ/L (99-109); CREATININE 0.7 MG/DL (0.6-1.3); GFR ESTIMATE (CALCULATED) > 59 mL/min/; GLUCOSE 91 mg/dL (70-99); POTASSIUM 3.6 MEQ/L (3.7-5.4); SODIUM 140 MEQ/L (136-147); UREA NITROGEN (BUN) 7 mg/dL (9-23)
[2017-08-26 16:38] LABS: HEMATOCRIT 27.8 % (36.0-46.0); HEMOGLOBIN 8.1 G/DL (11.9-15.5); IMM.PLATELET FRACTION 1.9 (1-7); MCH 20.7 PG (29.0-34.0); MCHC 29.1 G/DL (30.0-36.0); MCV 71.1 FL (83-99); PLAT.SUFFICIENCY VERY DECREASED; PLATELET COUNT 39 K/uL (156-360); RBC DIS.WIDTH-CV 20.9 % (11.8-14.6); RBC DIS.WIDTH-SD 53.2 % (39-53); RED BLOOD COUNT 3.91 M/uL (3.80-5.20)
[2017-08-26 16:39] LABS: WHITE BLOOD COUNT 1.6 K/uL (4.1-10.2)
[2017-08-27 06:20] LABS: ALBUMIN 3.2 G/DL (3.2-4.8); ALKALINE PHOSPHATASE 82 IU/L (3-129); ALT (GPT) 25 IU/L (3-49); AST (GOT) 38 IU/L (2-34); CHLORIDE 112 MEQ/L (99-109); CREATININE 0.7 MG/DL (0.6-1.3); DIRECT BILIRUBIN 0.2 mg/dL (0.0-0.3); GFR ESTIMATE (CALCULATED) > 59 mL/min/; GLUCOSE 105 mg/dL (70-99); POTASSIUM 3.7 MEQ/L (3.7-5.4); SODIUM 139 MEQ/L (136-147); TOTAL BILIRUBIN 0.5 MG/DL (0.0-1.0); UREA NITROGEN (BUN) 5 mg/dL (9-23)
[2017-08-27 06:33] LABS: HEMATOCRIT 26.6 % (36.0-46.0); HEMOGLOBIN 7.7 G/DL (11.9-15.5); MCH 20.9 PG (29.0-34.0); MCHC 28.9 G/DL (30.0-36.0); MCV 72.1 FL (83-99); RBC DIS.WIDTH-CV 21.1 % (11.8-14.6); RBC DIS.WIDTH-SD 54.7 % (39-53); RED BLOOD COUNT 3.69 M/uL (3.80-5.20)
[2017-08-27 06:34] LABS: WHITE BLOOD COUNT 1.7 K/uL (4.1-10.2)
[2017-08-27 06:47] LABS: IMM.PLATELET FRACTION 2.7 (1-7); PLAT.SUFFICIENCY VERY DECREASED; PLATELET COUNT 31 K/uL (156-360)
[2017-08-27] MEDS ORDERED: NICOTINE PATCH1 EAC1 TD (08:02)
[2017-08-27] MEDS ORDERED: FERROUS SULFAT325 MG PO (08:02)
[2017-08-27] MEDS ORDERED: KRISTALOSE20 GM PO (08:02)
[2017-08-27 08:04] VITALS: BP 132/90
== END 2017-08-27 09:02 | disposition home or self-care (01) | DRG 917 ==
LOC: EME 07:44 → 4WEST 10:05 → EDOF 10:05 → ENRESERV 10:06 → 4EAST 12:55 → ENRESERV 14:11 → 4WEST 15:43 → ENRESERV 08-26 10:46 → 5SOUTH 08-26 14:45
PROVIDERS: Emergency Medicine; Hospitalist; Internal Medicine Gastroenterology; Physician Assistant; Specialist
PROC: 30233N1 Transfusion of Nonautologous Red Blood Cells into Peripheral Vein, Percutaneous Approach (ICD-10-PCS; principal; 2017-08-23)
DX: T40.3X1A Poisoning by methadone, accidental (unintentional), initial encounter (principal); D61.818 Other pancytopenia; I85.11 Secondary esophageal varices with bleeding; K72.90 Hepatic failure, unspecified without coma; D62 Acute posthemorrhagic anemia; K74.69 Other cirrhosis of liver; B18.2 Chronic viral hepatitis C; K76.6 Portal hypertension; F17.210 Nicotine dependence, cigarettes, uncomplicated; E87.6 Hypokalemia; F32.9 Major depressive disorder, single episode, unspecified; F41.9 Anxiety disorder, unspecified; Z79.899 Other long term (current) drug therapy
CPT/HCPCS: 36600; 70450; 71045; 76705; 80048; 80048 91; 80053; 80076; 80306 90; 81003; 82140; 82248; 82550; 82553; 82803; 83735; 84100; 84484; 84999; 85014; 85018; 85025; 85027; 85610; 85730; 86850; 86860; 86870; 86880; 86900; 86901; 86905; 86920; 87040; 87641; 93005; 99281; 99285; C9113; J0696; J1630; J2060; J2310; J2354; J3010; J3475; J7030; J7050; P9016

== ENCOUNTER 2017-12-04 11:06 | Emergency (ER) | payer OTHER ==
[~2017-12-04] VITALS: Ht 162.6 cm; Wt 63.6 kg
[~2017-12-04 11:06] MED LIST changes: +FERROUS SULFAT325 MG PO; +GABAPENTIN400 MG PO; +KRISTALOSE20 GM PO; +NICOTINE PATCH1 EAC1 TD; +PROZAC20 MG PO; +TOPIRAMATE25 MG PO
[2017-12-04 12:02] LABS: CHLORIDE 109 mEq/L (99-109); SODIUM 138 mEq/L (136-147)
[2017-12-04 12:04] LABS: GLUCOSE 139 mg/dL (70-99)
[2017-12-04 12:08] LABS: CREATININE 0.9 mg/dL (0.6-1.3); GFR ESTIMATE (CALCULATED) > 59 mL/min/
[2017-12-04 12:09] LABS: UREA NITROGEN (BUN) 6 mg/dL (9-23)
[2017-12-04 12:18] LABS: HEMATOCRIT 31.7 % (36.0-46.0); HEMOGLOBIN 9.9 G/DL (11.9-15.5); IMM.PLATELET FRACTION 4.1 (1-7); MCH 23.7 PG (29.0-34.0); MCHC 31.2 G/DL (30.0-36.0); PLATELET COUNT 37 K/uL (156-360); RBC DIS.WIDTH-CV 18.2 % (11.8-14.6); RBC DIS.WIDTH-SD 50.1 % (39-53); RED BLOOD COUNT 4.17 M/uL (3.80-5.20)
[2017-12-04 12:23] LABS: WHITE BLOOD COUNT 1.6 K/uL (4.1-10.2)
[2017-12-04 12:45] LABS: INTER. NORMALIZED RATIO 1.2
[2017-12-04 12:47] LABS: PTT 21.8 SEC (25-37)
[2017-12-04 12:50] LABS: TROP-I INTERPRETATION NEGATIVE; TROPONIN-I < 0.01 ng/mL (0.0-0.30)
[2017-12-04 13:18] LABS: PLAT.SUFFICIENCY DECREASED
[2017-12-04] MEDS ORDERED: ROXICODONE5 MG PO (16:39)
[2017-12-04 17:28] VITALS: BP 115/69
== END 2017-12-04 17:23 | disposition home or self-care (01) ==
LOC: EME 11:06
PROVIDERS: Emergency Medicine
DX: K92.0 Hematemesis (principal); K74.60 Unspecified cirrhosis of liver; B19.20 Unspecified viral hepatitis C without hepatic coma; K22.70 Barrett's esophagus without dysplasia; F32.9 Major depressive disorder, single episode, unspecified; F17.200 Nicotine dependence, unspecified, uncomplicated; Z79.891 Long term (current) use of opiate analgesic; Z88.0 Allergy status to penicillin
CPT/HCPCS: 80048; 84484; 85027; 85610; 85730; 86850; 86870; 86900; 86901; 86905; 86920; J3010